=== PATIENT | female | born 1960 | race Asian ===

== ENCOUNTER 2020-12-21 01:47 | Emergency (ER) | payer OTHER ==
[~2020-12-21] VITALS: Ht 152.4 cm; Wt 52.2 kg
[2020-12-21 01:55] VITALS: BP_SYST 157
--- NOTE | 2020-12-21 02:00 | NUR ---
Patient to ER bed 4 to gown for evaluation. Side rails up.
--- NOTE | 2020-12-21 02:03 | NUR ---
Patient BIB by family from home. C/O abdominal pain x today. Patient reported, abdominal pain and rectal bleeding. A/O,X4, abdominal pain, pain rate 5/10.
[2020-12-21] MEDS ORDERED: NACL 0.9% 500 ML IV ONE (02:30)
--- NOTE | 2020-12-21 02:30 | NUR ---
Blood for labwork drawn from orthopedic physical therapist. Patient tolerated well.
[2020-12-21 02:42] LABS: HEMATOCRIT 38.8 % (36-48); MEAN CORPUSCULAR HEMOGLOBIN 33 pg (27-31); MEAN CORPUSCULAR HGB CONC 34 % (32-36); MEAN CORPUSCULAR VOLUME 97 fL (79.0-98.0); RED BLOOD CELL COUNT(AUTO) 3.99 MIL/uL (4.2-6.2); RED CELL DISTRIBUTION WIDTH 13.9 % (9.0-15.0); WHITE BLOOD COUNT (AUTO) 2.5 K/uL (4.8-10.8)
[2020-12-21 02:53] LABS: CALCIUM 9.1 mg/dL (8.4-11.0); CREATININE 0.55 mg/dL (0.55-1.30)
[2020-12-21 02:55] LABS: PLATELET COUNT (AUTO) 40 K/uL (130-430)
[2020-12-21 02:57] LABS: ATYPICAL LYMPHOCYTES % 14 % (0-0); BAND % (MANUAL) 0 % (0-6); BASOPHILS % (MANUAL) 0 % (0-2); EOSINOPHILS % (MANUAL) 1 % (0-7); LYMPHOCYTES % (MANUAL) 15 % (20-46); MONOCYTES % (MANUAL) 0 % (0-11)
[2020-12-21 02:58] LABS: ALBUMIN 4.4 g/dL (3.4-4.8); TOTAL BILIRUBIN 0.9 mg/dL (0.0-1.0)
[2020-12-21 03:05] LABS: BILIRUBIN,URINE NEGATIVE (NEGATIVE); BLOOD, URINE 3+ (NEGATIVE); CLARITY/URINE CLEAR (CLEAR); COLOR,URINE YELLOW (YELLOW); GLUCOSE,URINE NEGATIVE (NEGATIVE); KETONES,URINE NEGATIVE (NEGATIVE); LEUKOCYTE ESTERASE ,URINE NEGATIVE (NEGATIVE); NITRITE, URINE NEGATIVE (NEGATIVE); PROTEIN URINE TRACE (NEGATIVE); UROBILINOGEN,URINE 0.2 (0.2-1.0)
[2020-12-21 03:18] LABS: BACTERIA,URINE RARE /HPF (None Seen); WBC,URINE 0-3 /HPF (0-3)
[2020-12-21] MEDS ORDERED: POTASSIUM CHLORIDE 20 MEQ TAB.PRT.SR PO ONE (03:30)
--- NOTE | 2020-12-21 04:10 | NUR ---
ER at bedside examining patient witn interpretor.
[2020-12-21] MEDS ORDERED: NACL 0.9% 1,000 ML IV ONE (04:30)
[2020-12-21] MEDS ORDERED: ONDANSETRON HCL 4 MG/2 ML VIAL IVP ONE (04:30)
--- NOTE | 2020-12-21 04:35 | NUR ---
# 22 gauge angiocath placed to rac. Use of asceptic technique. Opsite placed over site. Blood return noted. Blood for lab drawn from site. Flushed with 10 cc of normal saline. No evidence of infiltration noted. Patient tolerated well.
--- NOTE | 2020-12-21 05:03 | NUR ---
COVID-19 swabs collected and sent to lab.
[2020-12-21] MEDS ORDERED: CIPR500T5 PO (05:20)
[2020-12-21] MEDS ORDERED: LOPE2CAP PO (05:20)
[2020-12-21] MEDS ORDERED: PHE25 PO (05:20)
[2020-12-21 05:59] VITALS: BP_SYST 142
--- NOTE | 2020-12-21 05:59 | NUR ---
Patient given written and verbal discharge instructions and verbalizes understanding. ER MD discussed with patient the results and treatment provided. Patient in stable condition. ID arm band removed. IV catheter removed intact and dressing applied, no active bleeding. Rx of Cipro, Imodium and Phenergan given. Patient educated on pain management and to follow up with PMD. Pain Scale 0/10. Opportunity for questions provided and answered. Medication side effect fact sheet provided.
== END 2020-12-21 05:59 | disposition home or self-care (01) ==
LOC: SED 01:47
DX: E87.6 Hypokalemia (principal); R19.7 Diarrhea, unspecified; Z88.0 Allergy status to penicillin; Z20.822 Contact with and (suspected) exposure to COVID-19
CPT/HCPCS: 36415; 80053; 81000; 83690; 85007; 85027; 87426; 96361; 96374; 99283; J2405; J7030